=== PATIENT | female | born 1975 | race Caucasian/White ===

== ENCOUNTER 2022-11-13 16:53 | Emergency (ER) | payer OTHER ==
[~2022-11-13] VITALS: Ht 152.4 cm; Wt 80.0 kg
[2022-11-13 19:45] LABS: BASO% 0.4 % (0-3); EOS% 1.3 % (0-8); HEMATOCRIT 39.8 % (37.0-47.0); IMMATURE GRANULOCYTES 0.6 % (0.0-5.0); MEAN CELL VOLUME 86.1 fL CALC (80.0-100.0); MEAN CORPUSCULAR HGB 30.3 pG CALC (26.0-32.0); MEAN CORPUSCULAR HGB CONC 35.2 g/dL CAL (32.0-36.0); MONO% 7.8 % (2-13); NEUT# 8.19 thou/uL (2.00-7.15); NEUT% 67.9 % (42-76); RED BLOOD COUNT 4.62 mill/uL (4.20-5.60)
[2022-11-13 19:46] LABS: URINE BILIRUBIN - DIPSTICK NEGATIVE (NEGATIVE); URINE BLOOD DIPSTICK SMALL (NEGATIVE); URINE COLOR YELLOW; URINE GLUCOSE - DIPSTICK NEGATIVE (NEGATIVE); URINE KETONE NEGATIVE (NEGATIVE); URINE LEUK ESTERASE NEGATIVE (NEGATIVE); URINE PROTEIN - DIPSTICK NEGATIVE (NEG-TRACE); URINE SPECIFIC GRAVITY 1.025; URINE UROBILINOGEN - DIPSTICK 0.2 E.U./dL (0.2)
[2022-11-13 19:51] LABS: URINE NITRITE - DIPSTICK NEGATIVE (Negative)
[2022-11-13 19:57] LABS: ALBUMIN 4.5 g/dL (3.2-5.0); ALKALINE PHOSPHATASE 73 u/l (38-126); ANION GAP 13 (6-22 (CALC)); BILIRUBIN, TOTAL 0.3 mg/dL (0.02-1.3); BUN 16 mg/dL (7-17); BUN/CREATININE RATIO 22 (12-20 (CALC)); CARBON DIOXIDE 25 mmol/l (22-30); CHLORIDE 106 mmol/l (95-108); CREATININE 0.7 mg/dL (0.5-1.0); GFR FOR AFR.AMER. > 60 ML/MIN (>=60 (CALC)); GFR OTHER RACES > 60 ML/MIN (>=60 (CALC)); LIPASE 70 u/l (23-300); POTASSIUM 4.3 mmol/l (3.5-5.1); SGOT/AST 28 u/l (14-36); SODIUM 139 mmol/l (137-146); TOTAL PROTEIN 8.3 g/dL (6.3-8.2)
[2022-11-13 19:58] LABS: URINE RBC 0-2 RBC/hpf (0-5)
[2022-11-13 19:59] LABS: URINE SQUAMOUS EPITHELIAL CELL RARE EPI/hpf (0-FEW); URINE WBC 0-2 WBC/hpf (0-5)
[2022-11-13] MEDS ORDERED: METRONIDAZOLE500 MG PO (22:23)
[2022-11-13] MEDS ORDERED: CIPROFLOXACN500 MG PO (22:23)
[2022-11-13 22:34] VITALS: BP 155/76
== END 2022-11-13 23:02 | disposition home or self-care (01) | DRG 392 ==
LOC: ED 16:53
PROVIDERS: Family Medicine
DX: K57.92 Diverticulitis of intestine, part unspecified, without perforation or abscess without bleeding (principal)
CPT/HCPCS: Q9967

== ENCOUNTER 2022-11-30 10:44 | Day surgery (SDC) | payer OTHER ==
[~2022-11-30] VITALS: Ht 152.4 cm; Wt 79.8 kg
[~2022-11-30 10:44] MED LIST: CIPROFLOXACN500 MG PO; METRONIDAZOLE500 MG PO
[2022-11-30] MEDS ORDERED: CETIRIZINE10 MG PO (10:59)
[2022-11-30] MEDS ORDERED: OMEPRAZOLE20 MG PO (12:23)
[2022-11-30 12:46] VITALS: BP 105/64
[2022-12-04] MEDS ORDERED: AMOXICILLIN500 M2 PO (14:36)
[2022-12-04] MEDS ORDERED: CLARITHROMYCIN500 MG PO (14:36)
== END 2022-11-30 13:04 | disposition home or self-care (01) | DRG 392 ==
LOC: ENDO 10:44 → ORM 11:50 → ENDO 11:50 → ORM 12:45 → ENDO 13:04 → ORM 13:30
PROVIDERS: ATTEND Surgery
PROC: 0DJD8ZZ Inspection of Lower Intestinal Tract, Via Natural or Artificial Opening Endoscopic (ICD-10-PCS; principal; 2022-11-30)
PROC: 0DB98ZX Excision of Duodenum, Via Natural or Artificial Opening Endoscopic, Diagnostic (ICD-10-PCS; 2022-11-30)
PROC: 0DB78ZX Excision of Stomach, Pylorus, Via Natural or Artificial Opening Endoscopic, Diagnostic (ICD-10-PCS; 2022-11-30)
DX: K29.50 Unspecified chronic gastritis without bleeding (principal); B96.81 Helicobacter pylori [H. pylori] as the cause of diseases classified elsewhere; K29.80 Duodenitis without bleeding; K64.8 Other hemorrhoids

== ENCOUNTER 2023-10-01 10:27 | Emergency (ER) | payer OTHER ==
[~2023-10-01] VITALS: Ht 152.4 cm; Wt 79.3 kg
[2023-10-01] VITALS (18 sets, daily range): BP systolic 103–140; BP diastolic 59–91
[~2023-10-01 10:27] MED LIST changes: +AMOXICILLIN500 M2 PO; +CETIRIZINE10 MG PO; +CLARITHROMYCIN500 MG PO; +OMEPRAZOLE20 MG PO
[2023-10-01] MEDS ORDERED: ASPIRIN 81 MG/TAB PO ONE (10:35)
[2023-10-01 11:01] LABS: BASO% 0.4 % (0-3); EOS% 1.7 % (0-8); HEMATOCRIT 42.9 % (37.0-47.0); HEMOGLOBIN 14.8 g/dl (12.0-16.0); IMMATURE GRANULOCYTES 0.4 % (0.0-5.0); MEAN CELL VOLUME 88.6 fL CALC (80.0-100.0); MEAN CORPUSCULAR HGB 30.6 pG CALC (26.0-32.0); MEAN CORPUSCULAR HGB CONC 34.5 g/dL CAL (32.0-36.0); MONO% 10.1 % (2-13); NEUT# 8.24 thou/uL (2.00-7.15); NEUT% 73.4 % (42-76); RED BLOOD COUNT 4.84 mill/uL (4.20-5.60); RED CELL DISTRI WIDTH 12.7 % (11.5-15.5)
[2023-10-01 11:31] LABS: ALBUMIN 4.5 g/dL (3.2-5.0); ALKALINE PHOSPHATASE 73 u/l (38-126); ANION GAP 13 (6-22 (CALC)); BUN 12 mg/dL (7-17); BUN/CREATININE RATIO 20 (12-20 (CALC)); CARBON DIOXIDE 22 mmol/l (22-30); CHLORIDE 107 mmol/l (95-108); CREATININE 0.6 mg/dL (0.5-1.0); GFR FOR AFR.AMER. > 60 ML/MIN (>=60 (CALC)); GFR OTHER RACES > 60 ML/MIN (>=60 (CALC)); POTASSIUM 3.9 mmol/l (3.5-5.1); SGOT/AST 24 u/l (14-36); SODIUM 139 mmol/l (137-146); TOTAL PROTEIN 8.3 g/dL (6.3-8.2)
[2023-10-01 11:36] LABS: BILIRUBIN, TOTAL 0.6 mg/dL (0.02-1.3)
[2023-10-01] MEDS ORDERED: KETOROLAC TROMETHAMINE 30 MG/ML SDV IV ONE (11:40)
[2023-10-01] MEDS ORDERED: ACETAMINOPHEN 500 MG TAB PO ONE (11:40)
[2023-10-01] MEDS ORDERED: MORPHINE SULFATE 4 MG/ML VIAL IV ONE (12:35)
[2023-10-01] MEDS ORDERED: ONDANSETRON HCl 4 MG/2 ML SDV IV ONE (12:35)
[2023-10-01] MEDS ORDERED: NAPROXEN500 MG PO (14:47)
[2023-10-01] MEDS ORDERED: FLEXERIL5 M1 PO (14:47)
== END 2023-10-01 15:00 | disposition home or self-care (01) | DRG 313 ==
LOC: ED 10:27
PROVIDERS: Family Medicine
DX: R07.89 Other chest pain (principal)